=== PATIENT | female | born 1940 | race Hispanic/Latino ===

== ENCOUNTER 2017-12-22 07:49 | Day surgery (SDC) | payer BC, MEDICARE ==
[2016-01-24 12:57] VITALS: BMI 25.7
[2017-12-22] MEDS ORDERED: Propofol 10 mg/ml Inj (20 ML) ONE ×2 (08:50→09:11)
[2017-12-22] MEDS ORDERED: Sodium Chloride 0.9% 1,000 ML IV SCH (09:45)
[2017-12-22 09:57] VITALS: O2SAT 99
[2017-12-22 10:33] VITALS: BP 147/71; PULSE 64; RESP 17; TEMP 97.8
[2017-12-23] MEDS ORDERED: Propofol 10 mg/ml Inj (20 ML) ONE ×3 (07:45→08:15)
== END 2017-12-22 11:08 | disposition home or self-care (01) ==
LOC: ENDO 07:49
PROVIDERS: ATTEND Specialist
DX: D12.8 Benign neoplasm of rectum (principal); K57.30 Diverticulosis of large intestine without perforation or abscess without bleeding; K64.8 Other hemorrhoids; R19.7 Diarrhea, unspecified
CPT/HCPCS: 45385; 87045; 87177; 87209; 87324; 88305; J2001; J2704; J7030; J7040